=== PATIENT | female | born 1990 | race Caucasian/White ===

== ENCOUNTER 2024-02-16 17:39 | Emergency (ER) | payer OTHER, SELFPAY ==
[2024-02-16 17:41] VITALS: BP 139/85
[2024-02-16 19:15] LABS: % Basophils 0.7 % (0-2); % Immature Granulocytes 0.2 % (0-0.5); % Lymphocytes 38.7 % (20.5-51.1); % Monocytes 7.7 % (1.7-9.3); % Neutrophils 51.7 % (42.2-75.2); Absolute Eosinophils 0.1 10^3/uL (0-0.7); Absolute Lymphocytes 2.2 10^3/uL (1.2-3.4); Absolute Monocytes 0.4 10^3/uL (0.1-0.6); Hematocrit 37.3 % (37.0-47.0); Hemoglobin 12.8 g/dL (12.0-16.0); Mean Corp Hgb Conc. 34.3 g/dL (33.0-37.0); Mean Corpuscular Hgb 30.5 pg (27.0-31.0); Mean Corpuscular Volume 88.8 fL (81.0-99.0); Mean Platelet Volume 9.7 fL (7.4-10.4); Nucleated Red Blood Cells % 0 %; Platelet Count 226 10^3/uL (130-400); Red Cell Dist. Width 12.7 % (11.5-14.5); White Blood Cell Count 5.7 10^3/uL (4.8-10.8)
[2024-02-16 19:57] LABS: ALT (SGPT) 36 U/L (0-35); AST (SGOT) 34 U/L (14-36); Albumin 4.1 g/dl (3.5-5.0); Alkaline Phosphatase 41 U/L (38-126); Blood Urea Nitrogen 19 mg/dl (7-17); Calcium 9.4 mg/dl (8.4-10.2); Carbon Dioxide 22 mmol/L (22-30); Chloride 104 mmol/L (98-107); Glucose 87 mg/dl (70-99); Potassium 4.1 mmol/L (3.5-5.1); Sodium 137 mmol/L (135-145); Total Bilirubin 1.2 mg/dl (0.2-1.3); Total Protein 7.1 g/dl (6.3-8.2); eGFR > 60.00
[2024-02-16 20:01] LABS: HCG, Serum Qualitative Screen Negative
[2024-02-16 20:34] LABS: Urine Albumin Negative (Neg - Trace); Urine Bilirubin Negative (Negative); Urine Character Clear (Clear); Urine Color Yellow; Urine Glucose Negative (Negative); Urine Ketone Negative (Negative); Urine Leukocyte Negative (Negative); Urine Nitrite Negative (Negative); Urine Occult Blood Trace (Negative); Urine Urobilinogen Negative (Neg - 1+)
[2024-02-16 20:54] LABS: Urine Red Blood Cell 0-2 /HPF (0-2); Urine Squamous Cell 0-2 /LPF (Few); Urine White Cell 0-2 /HPF (0-5)
[2024-02-16 21:20] VITALS: BP 109/68
--- NOTE | 2024-02-16 22:34 | ED.GENMED ---
History of Present Illness
General
Chief Complaint: Abdominal Pain
Source: patient and spouse
Exam Limitations: none
Time Seen by Provider: 02/16/24 18:19
Nursing documentation reviewed up to this point in time: agreed with
Travel History
Have you had any contact with someone who has COVID-19?: No
Do you have any symptoms of coronavirus? Fever > 100 degrees, chills, cough, shortness of breath, sore throat, loss of taste or smell, muscle aches, or headache?: No
History of Present Illness
History of Present Illness:
33-year-old female without significant past medical history presenting to the emergency department today with concerns of lower abdominal discomfort that started about 2 weeks ago after a tough moderates has had ongoing symptoms just below her
scar. Denies significant vaginal bleeding urinary symptoms nausea vomiting diarrhea. Here she does have mild tenderness palpation to the lower abdomen.
Past History
Past History
ED Past Medical History: Psychiatric (Panic attacks) and Other (Hepatitis C, heroin abuse)
ED Past Surgical History: None
Patient has exhibited threatening behavior?: No
PSI?: No
Social History
Tobacco: Smoker
Alcohol: None
Drug: Narcotics (Heroin)
Living: with family
Employment: Employed
Family History
Family History: Other (Noncontributory)
Review of Systems
Review of Systems
Allergies reviewed?: Yes
All Other Systems: ROS reviewed and negative except as documented in HPI and ROS
Phy Exam
Physical Exam
Physical Exam:
GENERAL: Alert , in no apparent distress
EYE: pupils equal and reactive
NECK: Supple, no significant adenopathy.
ENT: o/p clr, mmm.
CARDIAC: Regular rate and rhythm .
LUNGS: Clear breath sounds bilaterally, no acute respiratory distress, no wheezes/rales/rhonchi
ABDOMEN: Mild tender palpation of the lower abdomen. Otherwise soft, without focal tenderness, no r/g, no cvat
NEUROLOGICAL: Alert and oriented, no focal neuro deficits
SKIN: Warm and dry, skin intact.
MUSCULOSKELETAL: No edema, well perfused.
PSYCH: Normal and appropriate interaction.
Course
Orders/Labs/Results
Orders:
Orders
02/16/24 18:52
CT Abd/Pel (IV only)-DH only Urgent
Comment:
Reason For Exam: lower abd pain
Test Result ONCE
02/16/24 19:07
Complete Blood Count/With Diff Urgent
Comprehensive Metabolic Panel Urgent
HCG, Serum Qualitative Screen Urgent
02/16/24 20:27
Urinalysis Reflex To Culture Urgent
Date Specimen was Collected: 02/16/24
Time Specimen was Collected: 20:14
Urine Microscopic Reflex Cult Urgent
Abnormal Lab Results
02/16/24 02/16/24
19:07 20:27
BUN 19 H mg/dl
(7-17)
ALT 36 H U/L
(0-35)
Ur Occult Blood Reflex Trace A
(Negative)
02/16/24 19:07
02/16/24 19:07
Vital Signs
Initial and Last Documented VS:
Initial Vital Signs
Temp Pulse Resp BP Pulse Ox
98.8 F 63 16 139/85 98
02/16/24 17:41 02/16/24 17:41 02/16/24 17:41 02/16/24 17:41 02/16/24 17:41
Last Documented Vital Signs
Temp Pulse Resp BP Pulse Ox
98.8 F 58 16 109/68 97
02/16/24 17:41 02/16/24 21:20 02/16/24 21:20 02/16/24 21:20 02/16/24 21:20
MDM/Problems Addressed
MDM/Problems Addressed:
33-year-old female presenting to the emergency department today with concerns of 2 weeks of lower abdominal pain. To be just below the scar otherwise no vaginal bleeding discharge no urinary symptoms no nausea vomiting or diarrhea. Labs
unremarkable CT scan without emergent findings did show incidental finding of left renal vein vascular compression. Advised for outpatient follow-up. Otherwise stable for discharge return precautions given.
*Critical Care Note
Total Time (30-74mins, 75-104mins- exclusive of procedures): Not Applicable
ED Attending Note
-
Portions of this chart may have been created with voice recognition software.� Occasional wrong word or��sound alike� substitutions may have occurred due to the inherent limitations of voice recognition software.
Discharge Plan
Departure
Patient Disposition: Home (Routine Discharge)
Date of Disposition: 02/16/24
Time of Disposition: 22:34
Patient with high blood pressure during this ER visit?: No
Condition: Good
Covid-19: Not Applicable
Discharge Problem:
Abdominal pain, Entrapment syndrome of left renal vein
Instructions: Abdominal Pain
Prescriptions:
No Action
Control
1 tab PO DAILY
ciprofloxacin HCl 500 MG tablet
500 mg PO BID Qty: 14 0RF
tramadol 50 MG tablet
50 - 100 mg PO Q6HPRN PRN (Reason: severe pain) Qty: 20 0RF
hydrocodone-acetaminophen 5-325 mg tablet
1 tab PO TID PRN (Reason: pain) Qty: 7 0RF
Referrals:
Yvette Kelly MD [Active] - As needed
NONE,* [Family Provider] -
Activity Restrictions/Additional Instructions:
You came to the emergency department today with concerns of lower abdominal pain. No emergent findings here he did have an incidental finding on your CT scan of some renal venous congestion. You should follow-up with a primary care doctor and may
need to be referred to vascular for further assessment future. Otherwise return for any worsening, new or concerning symptoms.
Interventions
Interventions:
*Risk Screen - Suicide Last Done: 02/16/24 17:41
*General Assessment Last Done: 02/16/24 17:41
*Neglect/Abuse Screening Last Done: 02/16/24 17:41
ED- Fall Risk Assessment Last Done: 02/16/24 20:30
*ED COVID-19 Vaccine History Last Done: 02/16/24 20:31
AQ-Sknnma-Gskokvcyjc Assessment Last Done: 02/16/24 19:21
Discharge Date and Time
Print Language: FRENCH
== END 2024-02-16 22:46 | disposition home or self-care (01) ==
LOC: EMR 17:39
PROVIDERS: Physician Assistant; EMERGENCY PHYSICIAN Emergency Medicine
DX: R10.9 Unspecified abdominal pain (principal); I87.1 Compression of vein; F17.200 Nicotine dependence, unspecified, uncomplicated
CPT/HCPCS: 99284; 74177; 80053; 81003; 81015; 84703; 85025; Q9967

== ENCOUNTER 2024-03-08 21:18 | Emergency (ER) | payer OTHER, SELFPAY ==
[2024-03-08 21:19] VITALS: BP 123/88
--- NOTE | 2024-03-08 23:30 | ED.GENMED ---
History of Present Illness
General
Chief Complaint: DVT/Possible Blood Clot
Source: patient
Exam Limitations: none
Time Seen by Provider: 03/08/24 22:38
History of Present Illness
History of Present Illness:
This is a 33 year old female that comes in with c/o right leg pain and swelling. States that she has a thigh lift 2 weeks ago and she is concerned that she has a blood clot. States that the right leg is more swollen and painful over the past 1-2
days. Denies any fever, chills, chest pain, SOB, abd pain, nausea, vomiting, diarrhea, headache, dizziness, urinary burning.
Past History
Past History
ED Past Medical History: Psychiatric (Panic attacks) and Other (Hepatitis C, heroin abuse)
ED Past Surgical History: and Other (Breast augmentation, Thigh lift)
Patient has exhibited threatening behavior?: No
PSI?: No
Social History
Tobacco: Former smoker
Alcohol: None
Drug: Narcotics (Heroin)
Personal: Single
Living: with family
Employment: Employed
Family History
Family History: Other (Noncontributory)
Review of Systems
Review of Systems
All Other Systems: ROS reviewed and negative except as documented in HPI and ROS
Constitutional: Reports no symptoms; Denies fever or chills
EENT: Reports no symptoms
Respiratory: Reports no symptoms; Denies cough or trouble breathing
Cardiac: Reports no symptoms; Denies chest pain
ABD/GI: Reports no symptoms; Denies abdominal pain, nausea, vomiting or diarrhea
: Reports no symptoms; Denies dysuria, frequency or urgency
Musculoskeletal: Reports other (Right leg pain with swelling)
Skin: Reports no symptoms
Neurological: Reports no symptoms; Denies dizzy or headache
Psychiatric: Reports no symptoms
Phy Exam
General Physical Exam
General Presentation: no apparent distress
General age: appears stated age
General Skin: warm and dry
General Habitus: normal
General Mental: alert
General Hydration: appears well hydrated
ENT Exam
ENT Exam: TM's normal, pharynx normal and neck supple
Eye Exam
Eye Exam: EOMI
Cardiovascular Exam
Cardiovascular Exam: regular rate/rhythm and normal peripheral pulses
Pulmonary Exam
Pulmonary Exam: lungs clear, no respiratory distress, no rales, chest non tender, no crackles, no rhonchi, no wheezing and no cough
Gastrointestinal Exam
Gastrointestinal Exam: normal bowel sounds, non tender, soft, no organomegaly, no pulsatile mass and non distended
Musculoskeletal Exam
Musculoskeletal Exam: full ROM and other (Slight swelling of the right lower leg nonpitting,)
Skin Exam
Skin Exam: normal color, warm/dry, no petechia and other (Slight redness on the medial aspect of the calf. Warm to touch. Bilateral medial thigh incision clean and dry with Dermabond glue noted. )
Psychiatric Exam
Psychiatric Exam: normal mood/affect
Course
Orders/Labs/Results
Orders:
Orders
03/08/24 21:21
US Periph Venous LOWER Ext RT Urgent
Comment:
Reason For Exam: recent surgery, leg pain
Vital Signs
Initial and Last Documented VS:
Initial Vital Signs
Temp Pulse Resp BP Pulse Ox
98.9 F 102 18 123/88 97
03/08/24 21:19 03/08/24 21:19 03/08/24 21:19 03/08/24 21:19 03/08/24 21:19
Last Documented Vital Signs
Temp Pulse Resp BP Pulse Ox
98.9 F 102 18 123/88 97
03/08/24 21:19 03/08/24 21:19 03/08/24 21:19 03/08/24 21:19 03/08/24 21:19
MDM/Problems Addressed
Differential Diagnosis Includes:
DVT. Post surgical swelling,
MDM/Problems Addressed:
This is a 33 year old female that comes in with c/o swelling and pain in the right leg. States that she has a thigh lift2 weeks go and was concerned about a DVT.
Will get US
Back into see patient. Explained that there is no blood clot in the deep venous system but there is a superficial clot. Will start patient on Aspirin and explained that she will need a repeat US in 2 weeks. Will discharge patient home.
Chronic conditions affecting care:
NA
Acute Exacerbation and/or Progression of Chronic Illness:
NA
*Radiology
Radiology exam reviewed: radiology read reviewed (US-NO evidence of deep venous thrombosis. There is nonocclusive superficial venous thrombosis in the greater saphenous vein at the knee and upper calf. )
*Pulse Oximetry
Patient hypoxic: no
*EKG
Interpreted by ED Provider?: NA
Rate: EKG- N/A
*Small Products Assembler Interpretation
Rate: Small Products Assembler- N/A
*Critical Care Note
Total Time (30-74mins, 75-104mins- exclusive of procedures): Not Applicable
ED Attending Note
-
Portions of this chart may have been created with voice recognition software.� Occasional wrong word or��sound alike� substitutions may have occurred due to the inherent limitations of voice recognition software.
Discharge Plan
Departure
Patient Disposition: Home (Routine Discharge)
Date of Disposition: 03/08/24
Time of Disposition: 23:42
Patient with high blood pressure during this ER visit?: No
Condition: Good
Covid-19: Not Applicable
Discharge Problem:
Superficial phlebitis
Instructions: Superficial vein phlebitis and thrombosis
Prescriptions:
No Action
Control
1 tab PO DAILY
ciprofloxacin HCl 500 MG tablet
500 mg PO BID Qty: 14 0RF
tramadol 50 MG tablet
50 - 100 mg PO Q6HPRN PRN (Reason: severe pain) Qty: 20 0RF
hydrocodone-acetaminophen 5-325 mg tablet
1 tab PO TID PRN (Reason: pain) Qty: 7 0RF
Referrals:
NONE,* [Family Provider] -
Activity Restrictions/Additional Instructions:
As discussed, your US is negative for any Deep thrombus. There is a nonocclusive superficial thrombus. Please take an Aspirin 325mg daily. Please have a repeat ultrasound of the right leg in 1-2 weeks. Follow up with the surgeon. Please do warm
compresses to the right lower leg 3-4 times daily for about 20min. IF YOU HAVE INCREASED SWELLING, PAIN, REDNESS OF YOU HAVE ANY OTHER CONCERNS PLEASE RETURN TO THE EMERGENCY ROOM.
Interventions
Interventions:
*Risk Screen - Suicide Last Done: 03/08/24 23:36
*General Assessment Last Done: 03/08/24 23:36
*Neglect/Abuse Screening Last Done: 03/08/24 23:36
ED- Fall Risk Assessment Last Done: 03/08/24 23:36
*ED COVID-19 Vaccine History Last Done: 03/08/24 23:36
ED- Cardiac Assessment Last Done: 03/08/24 22:23
ED- Pulmonary Assessment Last Done: 03/08/24 22:23
ED-Peripheral Vascular Assessment Last Done: 03/08/24 22:22
ED-Skin Assessment Last Done: 03/08/24 22:22
Discharge Date and Time
Print Language: GUYANESE
[2024-03-08 23:36] VITALS: BP 109/65; BMI 21.0
[2024-03-08] MEDS: ASPIRIN 325 MG PO (23:53)
== END 2024-03-09 00:09 | disposition home or self-care (01) ==
LOC: EMR 21:18
PROVIDERS: EMERGENCY PHYSICIAN Student in an Organized Health Care Education/Training Program
DX: I80.9 Phlebitis and thrombophlebitis of unspecified site (principal); F41.0 Panic disorder [episodic paroxysmal anxiety]; Z86.19 Personal history of other infectious and parasitic diseases; Z87.891 Personal history of nicotine dependence
CPT/HCPCS: 99284; 93971

== ENCOUNTER 2024-06-19 09:12 | Emergency (ER) | payer OTHER, SELFPAY ==
[2024-06-19 09:19] VITALS: BP 125/80
[2024-06-19 09:45] VITALS: BMI 21.8
[2024-06-19 10:03] VITALS: BP 114/73
[2024-06-19 10:10] LABS: % Basophils 0.7 % (0-2); % Eosinophils 0.5 % (0-6); % Immature Granulocytes 0.2 % (0-0.5); % Lymphocytes 26.2 % (20.5-51.1); % Neutrophils 66.4 % (42.2-75.2); Absolute Lymphocytes 1.5 10^3/uL (1.2-3.4); Absolute Monocytes 0.3 10^3/uL (0.1-0.6); Absolute Neutrophils 3.7 10^3/uL (1.4-6.5); Hematocrit 38.1 % (37.0-47.0); Hemoglobin 13.4 g/dL (12.0-16.0); Mean Corp Hgb Conc. 35.2 g/dL (33.0-37.0); Mean Corpuscular Hgb 29.7 pg (27.0-31.0); Mean Corpuscular Volume 84.5 fL (81.0-99.0); Nucleated Red Blood Cells % 0 %; Platelet Count 247 10^3/uL (130-400); Red Blood Cell Count 4.51 10^6/uL (4.20-5.40); Red Cell Dist. Width 12.7 % (11.5-14.5); White Blood Cell Count 5.5 10^3/uL (4.8-10.8)
[2024-06-19 10:24] LABS: ALT (SGPT) 22 U/L (0-35); AST (SGOT) 24 U/L (14-36); Albumin 4.4 g/dl (3.5-5.0); Alkaline Phosphatase 40 U/L (38-126); Blood Urea Nitrogen 12 mg/dl (7-17); Calcium 9.2 mg/dl (8.4-10.2); Carbon Dioxide 20 mmol/L (22-30); Chloride 109 mmol/L (98-107); Estimated Creatinine Clearance > 125 ml/min; Glucose 107 mg/dl (70-99); Potassium 4.3 mmol/L (3.5-5.1); Sodium 142 mmol/L (135-145); Total Bilirubin 1.5 mg/dl (0.2-1.3); Total Protein 7.1 g/dl (6.3-8.2); eGFR > 60.00
--- NOTE | 2024-06-19 10:28 | ED.GENMED ---
History of Present Illness
<Manfred Watkins MD, Resident - Last Filed: 06/19/24 14:23>
General
Chief Complaint: Rectal Bleeding
Source: patient
Time Seen by Provider: 06/19/24 09:55
Travel History
Have you traveled to any high risk areas for coronavirus over the past 14 days?: No
Have you had any contact with someone who has COVID-19?: No
Do you have any symptoms of coronavirus? Fever > 100 degrees, chills, cough, shortness of breath, sore throat, loss of taste or smell, muscle aches, or headache?: No
History of Present Illness
History of Present Illness:
Eloise Amaya, 34-year-old female with history of colitis in 2018 and unclear history of hepatitis C,
Past History
<Manfred Watkins MD, Resident - Last Filed: 06/19/24 14:23>
Past History
ED Past Medical History: Psychiatric (Panic attacks) and Other (Hepatitis C, heroin abuse)
ED Past Surgical History: and Other (Breast augmentation, Thigh lift)
Patient has exhibited threatening behavior?: No
PSI?: No
Social History
Tobacco: Former smoker
Alcohol: None
Drug: Narcotics (Heroin)
Personal: Single
Living: with family
Employment: Employed
Family History
Family History: Other (Noncontributory)
Phy Exam
<Manfred Watkins MD, Resident - Last Filed: 06/19/24 14:23>
General Physical Exam
General Presentation: well appearing and no apparent distress
General Skin: warm and dry
General Habitus: normal
General Mental: alert
General Hydration: appears well hydrated
ENT Exam
ENT Exam: EOMI, pharynx normal, neck supple and normocephalic
Eye Exam
Eye Exam: PERRL, cornea clear and conjunctiva normal
Cardiovascular Exam
Cardiovascular Exam: regular rate/rhythm, no edema, no murmur and normal peripheral pulses
Pulmonary Exam
Pulmonary Exam: lungs clear, no respiratory distress, no rales, no crackles, no rhonchi, no stridor, no wheezing and no cough
Gastrointestinal Exam
Gastrointestinal Exam: normal bowel sounds, soft, no organomegaly, no pulsatile mass, non distended and tender (diffuse lower abdominal and pelvic)
Neurological Exam
Neurological Exam: alert, oriented x3, no motor deficits and speech normal
Musculoskeletal Exam
Musculoskeletal Exam: full ROM and no edema
Skin Exam
Skin Exam: normal color, warm/dry, no rash and no petechia
Psychiatric Exam
Psychiatric Exam: normal mood/affect
Course
<Manfred Jose Watkins MD, Resident - Last Filed: 06/19/24 14:23>
Orders/Labs/Results
Orders:
Orders
06/19/24 10:00
CMP [Comprehensive Metabolic Panel] Urgent
Complete Blood Count/With Diff Urgent
HCG, Serum Qualitative Screen Urgent
Comment: ADD ON
06/19/24 10:18
Test Result ONCE
06/19/24 10:20
Add On- LAB Urgent
Tests Added?: HCG serum
06/19/24 10:24
CT Abd/pel W Iv And Oral Contr Stat
Comment:
Reason For Exam: blood clots in stool; acute abdominal pain
Iohexol [Omnipaque] See Protocol PO NOW STA
06/19/24 10:26
Ketorolac [Toradol] 30 mg IV NOW STA
Ondansetron Injectable [Zofran] 4 mg IV NOW STA
06/19/24 13:45
Amoxicillin 875 mg/Clav 125 mg [Augmentin 875 mg/125 mg] 1 tablet PO NOW STA
Abnormal Lab Results
06/19/24
10:00
Chloride 109 H mmol/L
(98-107)
Carbon Dioxide 20 L mmol/L
(22-30)
Glucose 107 H mg/dl
(70-99)
Total Bilirubin 1.5 H mg/dl
(0.2-1.3)
06/19/24 10:00
06/19/24 10:00
Vital Signs
Initial and Last Documented VS:
Initial Vital Signs
Temp Pulse Resp BP Pulse Ox
98.0 F 59 16 125/80 97
06/19/24 09:19 06/19/24 09:19 06/19/24 09:19 06/19/24 09:19 06/19/24 09:19
Last Documented Vital Signs
Temp Pulse Resp BP Pulse Ox
98.0 F 59 16 117/76 98
06/19/24 09:19 06/19/24 09:19 06/19/24 09:19 06/19/24 13:00 06/19/24 13:00
<Josias Blandon, DO - Last Filed: 06/19/24 13:52>
Orders/Labs/Results
Orders:
Orders
06/19/24 10:00
CMP [Comprehensive Metabolic Panel] Urgent
Complete Blood Count/With Diff Urgent
HCG, Serum Qualitative Screen Urgent
Comment: ADD ON
06/19/24 10:18
Test Result ONCE
06/19/24 10:20
Add On- LAB Urgent
Tests Added?: HCG serum
06/19/24 10:24
CT Abd/pel W Iv And Oral Contr Stat
Comment:
Reason For Exam: blood clots in stool; acute abdominal pain
Iohexol [Omnipaque] See Protocol PO NOW STA
06/19/24 10:26
Ketorolac [Toradol] 30 mg IV NOW STA
Ondansetron Injectable [Zofran] 4 mg IV NOW STA
06/19/24 13:45
Amoxicillin 875 mg/Clav 125 mg [Augmentin 875 mg/125 mg] 1 tablet PO NOW STA
Abnormal Lab Results
06/19/24
10:00
Chloride 109 H mmol/L
(98-107)
Carbon Dioxide 20 L mmol/L
(22-30)
Glucose 107 H mg/dl
(70-99)
Total Bilirubin 1.5 H mg/dl
(0.2-1.3)
06/19/24 10:00
06/19/24 10:00
Vital Signs
Initial and Last Documented VS:
Initial Vital Signs
Temp Pulse Resp BP Pulse Ox
98.0 F 59 16 125/80 97
06/19/24 09:19 06/19/24 09:19 06/19/24 09:19 06/19/24 09:19 06/19/24 09:19
Last Documented Vital Signs
Temp Pulse Resp BP Pulse Ox
98.0 F 59 16 117/76 98
06/19/24 09:19 06/19/24 09:19 06/19/24 09:19 06/19/24 13:00 06/19/24 13:00
<Manfred Watkins MD, Resident - Last Filed: 06/19/24 14:23>
*Critical Care Note
Total Time (30-74mins, 75-104mins- exclusive of procedures): Not Applicable
<Josias Blandon, DO - Last Filed: 06/19/24 13:52>
Update Note
Update Note:
CT consistent with colitis and constipation. I did offer admission to see GI and start antibiotics. However, patient feels comfortable going home. Will start Augmentin and placed on the GI office frontload driver call back to help expedite follow-up
ED Attending Note
<Manfred Watkins MD, Resident - Last Filed: 06/19/24 14:23>
-
Portions of this chart may have been created with voice recognition software.� Occasional wrong word or��sound alike� substitutions may have occurred due to the inherent limitations of voice recognition software.
<Josiasroula Blandon, DO - Last Filed: 06/19/24 13:52>
ED Attending Note
Patient seen and examined by attending physician: Yes
I performed a history and physical exam of patient and discussed management with resident, I reviewed resident's note and agree with documented findings and plan of care.: Yes
ED Attending Note:
I have seen and evaluated the patient with a lyrt-iz-tanz encounter. I have spoken to the resident and involved in the medical history, the physical exam, medical decision making.
Evaluation and management service: agree unless noted differently below.
Results interpretation: agree unless noted differently below.
Focused HPI: 34-year-old female presenting with abdominal pain and rectal bleeding. Patient states she is now passing blood clots without stool. She states she has a history of colitis many years ago but never followed up with GI since symptoms
resolved
Physical exam: Mild left lower quadrant abdominal pain. Patient appears uncomfortable
Medical Decision Making: Will obtain CT given her history. Will get GI involved after CT to discuss disposition
Discharge Plan
Departure
Patient Disposition: Home (Routine Discharge)
Date of Disposition: 06/19/24
Time of Disposition: 13:46
Patient with high blood pressure during this ER visit?: No
Discharge Problem:
Colitis
Instructions: Colitis (DC)
Prescriptions:
New
amoxicillin-pot clavulanate 875-125 mg tablet
1 tab PO BID Qty: 20 0RF
No Action
Control
1 tab PO DAILY
ciprofloxacin HCl 500 MG tablet
500 mg PO BID Qty: 14 0RF
tramadol 50 MG tablet
50 - 100 mg PO Q6HPRN PRN (Reason: severe pain) Qty: 20 0RF
hydrocodone-acetaminophen 5-325 mg tablet
1 tab PO TID PRN (Reason: pain) Qty: 7 0RF
Referrals:
Iliana Quiros MD [Active] -
NONE,* [Family Provider] -
Activity Restrictions/Additional Instructions:
Please return for any worsening symptoms.
You may return at any time if you have further concerns.
Please follow up with your doctor at the first available appointment, preferably this week.
You were placed on the gastroenterology callback tracker. Someone from their office should call you in the next few days. If you do not hear from them in the next few days, please give them a call.
Thank you for choosing [facility].
Interventions
Interventions:
*Risk Screen - Suicide Last Done: 06/19/24 13:59
*General Assessment Last Done: 06/19/24 09:45
*Neglect/Abuse Screening Last Done: 06/19/24 13:59
ED- Fall Risk Assessment Last Done: 06/19/24 09:45
*ED COVID-19 Vaccine History Last Done: 06/19/24 09:45
*Nursing Disposition Last Done: 06/19/24 13:59
UC-Suvjiq-Gitfdvavso Assessment Last Done: 06/19/24 09:45
ED- Cardiac Assessment Last Done: 06/19/24 09:45
ED- Pulmonary Assessment Last Done: 06/19/24 09:45
Discharge Date and Time
Discharge Date/Time: 06/19/24 14:00
Print Language: YI
[2024-06-19] MEDS: ZOFRAN 4 MG IV (10:32)
[2024-06-19] MEDS: OMNIPAQUE 50 ML PO (10:32)
[2024-06-19] MEDS: TORADOL 30 MG IV (10:32)
[2024-06-19 10:50] LABS: HCG, Serum Qualitative Screen Negative
[2024-06-19 11:00] VITALS: BP 113/75
[2024-06-19 12:00] VITALS: BP 112/73
[2024-06-19 13:00] VITALS: BP 117/76
[2024-06-19] MEDS: AUGMENTIN 875 MG/125 MG 1 TABLET PO (13:53)
== END 2024-06-19 14:00 | disposition home or self-care (01) ==
LOC: EMR 09:12
PROVIDERS: EMERGENCY PHYSICIAN Student in an Organized Health Care Education/Training Program
DX: K52.9 Noninfective gastroenteritis and colitis, unspecified (principal)
CPT/HCPCS: 99284; 74177; 80053; 84703; 85025; Q9967

== ENCOUNTER → 2024-06-25 06:16 | Day surgery (SDC) | payer OTHER, SELFPAY | LOC: GI 06:16 | PROVIDERS: ATTENDING PHYSICIAN Internal Medicine | DX: R10.32 Left lower quadrant pain (principal); K92.1 Melena; K63.89 Other specified diseases of intestine | CPT/HCPCS: 45380; 88305 ==

== ENCOUNTER 2025-02-27 06:04 | Day surgery (SDC) | payer OTHER, SELFPAY ==
[2025-02-27] VITALS (9 sets, daily range): BP systolic 94–118; BP diastolic 57–76; BMI 20.7
[2025-02-27] MEDS: TYLENOL 1000 MG PO (07:41)
--- NOTE | 2025-02-27 07:47 | PTCARENOTE ---
Patient has 2 permanent bracelets on. Lamont Scott Anesthesiologist was here (Dr. Dominguez is patients Anesthesiologist) and he stated that patient can leave on the the bracelets.
[2025-02-27] MEDS: SUBLIMAZE 25 MCG IV (09:34)
[2025-02-27] MEDS: ROXICODONE 5 MG PO (10:29)
== END 2025-02-27 11:40 | disposition home or self-care (01) ==
LOC: SDS 06:04
PROVIDERS: ATTENDING PHYSICIAN Surgery
DX: N80.C11 Endometriosis of the anterior abdominal wall, fascia and muscular layers (principal)
CPT/HCPCS: 22900; 88304; 88341; 88342